=== PATIENT | male | born 1965 | race Caucasian/White ===

== ENCOUNTER 2018-07-01 18:49 | Outpatient (CLI) | payer OTHER ==
--- NOTE | 2018-07-02 10:21 | Ultrasound Report ---
Procedure Date: 07/01/2018 Accession Number: [id number] / [id number] Procedure: US - Duplex Lwr Ext Arterial Bilat CPT Code: FULL RESULT: EXAM: Bilateral Lower Extremity Arterial Doppler Ultrasound EXAM DATE: 07/01/2018 08:03 PM. CLINICAL HISTORY: Claudication, intermittent. COMPARISON: None. TECHNIQUE: Real-time sonographic vascular imaging was performed by the bar pointer, utilizing color-flow, Doppler flow, and spectral analysis. Multiple sales representative church furniture static images were saved for review. FINDINGS: Right lower extremity arterial system: Atherosclerotic disease present. Monophasic waveform in the peroneal artery. Patent vessels without focal stenosis identified. Left lower extremity arterial system: Atherosclerotic disease present. Proximal and mid superficial femoral artery is occluded with reconstitution distally where there are monophasic waveforms in the distal superficial femoral artery extending to the ankle. Right Leg: MILL OILER: PSV 82.9 cm/sec. Biphasic waveform. PSFA: PSV 96.9 cm/sec. Triphasic waveform. MSFA: PSV 134.3 cm/sec. Triphasic waveform. DSFA: PSV 53.4 cm/sec. Triphasic waveform. PFA: PSV 85.7 cm/sec. Biphasic waveform. POP: PSV 93.3 cm/sec. Triphasic waveform. ALVIN: PSV 92.8 cm/sec. Biphasic waveform. NETWORK TECHNICIAN: PSV 75.6 cm/sec. Biphasic waveform. PER: PSV 28 cm/sec. Monophasic waveform. DPA: PSV 26.3 cm/sec. Biphasic waveform. Left Leg: MILL OILER: PSV 88.2 cm/sec. Biphasic waveform. PSFA: PSV 56.2 cm/sec. Monophasic waveform. MSFA: PSV 0 cm/sec, stenosed. DSFA: PSV 25.6 cm/sec. Monophasic waveform. PFA: PSV 70.5 cm/sec. Monophasic waveform. POP: PSV 28.6 cm/sec. Monophasic waveform. ALVIN: PSV 12.5 cm/sec. Monophasic waveform. NETWORK TECHNICIAN: PSV 45.9 cm/sec. Monophasic waveform. PER: PSV 17 cm/sec. Monophasic waveform. DPA: PSV 6.8 cm/sec. Monophasic waveform. IMPRESSION: 1. Proximal and mid left superficial femoral artery is occluded with reconstitution distally with abnormal monophasic waveforms extending to the ankle. 2. No focal stenosis seen in the right lower extremity arterial system; however, abnormal waveforms indicating atherosclerotic disease. RADIA
== END 2018-07-01 18:50 | disposition home or self-care (01) ==
LOC: DI 18:49
PROVIDERS: ATTEND Family Medicine
DX: I70.202 Unspecified atherosclerosis of native arteries of extremities, left leg (principal)
CPT/HCPCS: 93925

== ENCOUNTER 2018-07-11 08:00 | Outpatient (CLI) | payer OTHER ==
[2018-07-11 12:17] LABS: BASOPHILS # (AUTO) 0.1 10^3/uL (0.0-0.1); BASOPHILS % (AUTO) 0.9 %; EOSINOPHILS % (AUTO) 11.4 %; HGB - HEMOGLOBIN 16.4 g/dL (14.0-18.0); LYMPHOCYTES % (AUTO) 21.9 %; MEAN CORPUSCULAR HEMOGLOBIN 31.9 pg (27.0-31.0); MEAN CORPUSCULAR HGB CONC 34.1 g/dL (32.0-36.0); MEAN CORPUSCULAR VOLUME 93.5 fL (80.0-94.0); MEAN PLATELET VOLUME 11.5 fL (7.4-11.4); MONOCYTES # (AUTO) 0.7 10^3/uL (0.0-1.0); MONOCYTES % (AUTO) 8.3 %; NEUTROPHILS # (AUTO) 5.2 10^3/uL (1.5-6.6); NEUTROPHILS % (AUTO) 57.5 %; PLT - PLATELET COUNT 165 10^3/uL (130-450); RED BLOOD COUNT 5.13 10^6/uL (4.70-6.10)
[2018-07-11 13:07] LABS: ALBUMIN/GLOBULIN RATIO 1.5 (1.0-2.2); ALKALINE PHOSPHATASE 43 IU/L (42-121); ALT ALANINE AMINOTRANSFERASE 34 IU/L (10-60); AST ASPARTATE AMINOTRANSFERASE 26 IU/L (10-42); BILIRUBIN,TOTAL 0.7 mg/dL (0.2-1.0); BUN - BLOOD UREA NITROGEN 17 mg/dL (6-20); CALCIUM 9.1 mg/dL (8.5-10.3); CARBON DIOXIDE - CO2 26 mmol/L (21-32); CHLORIDE 106 mmol/L (101-111); CHOL/HDL RATIO 3.5 (<5.0); CHOLESTEROL 130 mg/dL; CREATININE 1.1 mg/dL (0.6-1.2); GFR - MDRD 70 (>89); GLUCOSE 101 mg/dL (70-100); HDL CHOLESTEROL 37 mg/dL; LDL CHOLESTEROL,CALCULATED 71 mg/dL; LDL/HDL RATIO 1.9 (<3.6); SODIUM 138 mmol/L (135-145); TOTAL PROTEIN 6.7 g/dL (6.7-8.2); VLDL CHOLESTEROL 22 mg/dL
== END 2018-07-11 08:01 | disposition home or self-care (01) ==
LOC: LAB.WCP 08:00
PROVIDERS: ATTEND Family Medicine
DX: I10 Essential (primary) hypertension (principal); I25.10 Atherosclerotic heart disease of native coronary artery without angina pectoris; Z79.891 Long term (current) use of opiate analgesic; E78.5 Hyperlipidemia, unspecified; Z12.5 Encounter for screening for malignant neoplasm of prostate
CPT/HCPCS: 36415; 80053; 80061; 83721; 84153; 84443; 85025

== ENCOUNTER 2018-11-14 07:59 | Outpatient (CLI) | payer OTHER | END 2018-11-14 08:00 | disposition home or self-care (01) | LOC: DI 07:59 | PROVIDERS: ATTEND Family Medicine | DX: Z53.9 Procedure and treatment not carried out, unspecified reason (principal) ==

== ENCOUNTER 2018-11-28 07:46 | Outpatient (CLI) | payer OTHER | END 2018-11-28 07:47 | disposition home or self-care (01) | LOC: DI 07:46 | PROVIDERS: ATTEND Family Medicine | DX: Z53.9 Procedure and treatment not carried out, unspecified reason (principal) ==

== ENCOUNTER 2020-03-20 15:37 | Emergency (ER) | payer OTHER ==
--- NOTE | 2020-03-20 16:11 | ED Physician Documentation ---
PD HPI DYSPNEA - Stated complaint Stated Complaint: SOA/COUGH - Chief complaint Chief Complaint: Resp - History obtained from History obtained from: Patient - History of Present Illness Timing - onset: Other (55-year-old gentleman with history of remote coronary bypass and history of smoking use but quit a year and a half ago. He had a nonproductive cough for 5 days and over the last 2 to 3 days has had dyspnea and orthopnea. Especially bad last night. There is some associated migratory chest pain with it. Denies fevers or chills. Minimal pedal edema.) Review of Systems Ten Systems: 10 systems reviewed and negative Constitutional: denies: Fever, Chills, Myalgias, Fatigue Nose: denies: Rhinorrhea / runny nose Throat: denies: Sore throat Cardiac: reports: Chest pain / pressure, Pedal edema. denies: Palpitations, Calf pain Respiratory: reports: Dyspnea, Cough GI: denies: Abdominal Pain PD PAST MEDICAL HISTORY - Past Medical History Cardiovascular: Hypertension, Coronary artery disease - Past Surgical History Past Surgical History: Yes Cardiovascular: CABG - Present Medications Home Medications: Ambulatory Orders Medication Instructions Recorded Confirmed Atenolol 50 mg PO DAILY 09/09/15 09/09/15 Hydrochlorothiazide 25 mg PO DAILY 09/09/15 03/20/20 Amlodipine Besylate 5 mg PO BID 03/20/20 03/20/20 Aspirin [Aspirin EC] 81 mg PO DAILY 03/20/20 03/20/20 Aspirin/Acetaminophen/Caffeine 2 tab PO PRN PRN 03/20/20 03/20/20 [Excedrin Extra Strength Caplet] Atorvastatin [Lipitor] 20 mg PO DAILY 03/20/20 03/20/20 Azithromycin 1 tab PO DAILY #4 tablet 03/20/20 Clopidogrel [Plavix] 75 mg PO DAILY 03/20/20 03/20/20 diphenhydrAMINE [Benadryl] 25 mg PO QPM 03/20/20 03/20/20 predniSONE [Deltasone] 60 mg PO DAILY 5 Days #15 tablet 03/20/20 - Allergies Allergies/Adverse Reactions: Allergies Allergy/AdvReac Type Severity Reaction Status Date / Time Iodinated Contrast Media Allergy Hives Verified 03/20/20 15:48 - Social History Does the pt smoke?: Yes Smoking Status: Former smoker Does the pt drink ETOH?: No Does the pt have substance abuse?: No - Family History Family history: reports: Non contributory PD ED PE NORMAL - Vitals Vital signs reviewed: Yes - General General: Alert and oriented X 3, No acute distress - HEENT HEENT: PERRL, EOMI - Neck Neck: Supple, no meningeal sign, No bony TTP - Cardiac Cardiac: RRR, No murmur - Respiratory Respiratory: No respiratory distress, Other (Coarse and rhonchorous at the left base) - Abdomen Abdomen: Soft, Non tender - Back Back: No CVA TTP, No spinal TTP - Derm Derm: Normal color, Warm and dry - Extremities Extremities: No edema, No calf tenderness / cord - Neuro Neuro: Alert and oriented X 3, Normal speech Results - Vitals Vitals: Vital Signs - 24 hr 03/20/20 03/20/20 03/20/20 15:44 16:53 17:03 Temperature 37.1 C Heart Rate 73 62 68 Respiratory 30 H 20 20 Rate Blood Pressure 159/81 H 124/83 H 139/80 H O2 Saturation 91 L 95 94 03/20/20 18:08 Temperature 37.4 C Heart Rate 63 Respiratory 20 Rate Blood Pressure 139/70 H O2 Saturation 95 Oxygen O2 Source Room air - EKG (time done) 1555 Rate: Rate (enter#) (68) Rhythm: NSR [place]: Normal Intervals: Normal [place] QRS: Normal Ischemia: Normal ST segments Computer interpretation: Agree with computer - Labs Labs: Laboratory Tests 03/20/20 03/20/20 03/20/20 16:10 16:10 16:10 WBC 11.0 H RBC 5.24 Hgb 16.1 Hct 47.1 MCV 89.9 MCH 30.7 MCHC 34.2 RDW 13.3 Plt Count 211 MPV 11.8 H Neut # (Auto) 7.6 H Lymph # (Auto) 1.7 [place] # (Auto) 0.9 Eos # (Auto) 0.7 Baso # (Auto) 0.1 Absolute Nucleated RBC 0.00 Nucleated RBC % 0.0 D-Dimer Sodium 139 Potassium 3.7 Chloride 104 Carbon Dioxide 26 Anion Gap 9.0 BUN 20 Creatinine 0.9 Estimated GFR (MDRD) 87 L Glucose 128 H Lactic Acid 1.4 Calcium 9.0 Total Bilirubin 1.4 H AST 33 ALT 40 Alkaline Phosphatase 49 Troponin I High Sens B-Natriuretic Peptide Total Protein 8.0 Albumin 4.2 Globulin 3.8 Albumin/Globulin Ratio 1.1 Lipase 44 03/20/20 03/20/20 03/20/20 16:10 16:10 16:10 WBC RBC Hgb Hct MCV MCH MCHC RDW Plt Count MPV Neut # (Auto) Lymph # (Auto) [place] # (Auto) Eos # (Auto) Baso # (Auto) Absolute Nucleated RBC Nucleated RBC % D-Dimer 235.7 Sodium Potassium Chloride Carbon Dioxide Anion Gap BUN Creatinine Estimated GFR (MDRD) Glucose Lactic Acid Calcium Total Bilirubin AST ALT Alkaline Phosphatase Troponin I High Sens 7.6 B-Natriuretic Peptide 30 Total Protein Albumin Globulin Albumin/Globulin Ratio Lipase - Rads (name of study) 1v chest Radiology: EMP read contemporaneously (L lung base scarring) PD MEDICAL DECISION MAKING - ED course ED course: 55-year-old gentleman with what sounds like bronchitis with some shortness of breath and coughing. Work-up here was negative, his vital signs improved without specific intervention. Coronavirus is possible and a test was done, but lack of lymphopenia makes it less likely. He was given antibiotics because of potential for underlying COPD from prior smoking. Departure - Departure Disposition: Home, Self Care Clinical Impression: Bronchitis Condition: Good Record reviewed to determine appropriate education?: Yes Instructions: ED Bronchitis Asthmatic Prescriptions: Azithromycin 1 tab PO DAILY #4 tablet predniSONE [Deltasone] 60 mg PO DAILY 5 Days #15 tablet Comments: Today we checked for classic pneumonia. Your x-ray was clear except for some chronic scarring at the left lung base. We also checked for signs of heart attack, heart failure, and blood clots. These were all negative. Coronavirus testing is pending, but given the limitations we talked about, you need to assume it is positive even if the result is negative. You should home quarantine until 3 days have passed after all of your symptoms are completely better. Return for new or worsening symptoms. Discharge Date/Time: 03/20/20 18:08
[2020-03-20 16:18] LABS: BASOPHILS # (AUTO) 0.1 10^3/uL (0.0-0.1); BASOPHILS % (AUTO) 0.8 %; EOSINOPHILS # (AUTO) 0.7 10^3/uL (0.0-0.7); EOSINOPHILS % (AUTO) 6.4 %; HGB - HEMOGLOBIN 16.1 g/dL (14.0-18.0); LYMPHOCYTES # (AUTO) 1.7 10^3/uL (1.5-3.5); LYMPHOCYTES % (AUTO) 15.4 %; MEAN CORPUSCULAR HEMOGLOBIN 30.7 pg (27.0-31.0); MEAN CORPUSCULAR HGB CONC 34.2 g/dL (32.0-36.0); MEAN CORPUSCULAR VOLUME 89.9 fL (80.0-94.0); MEAN PLATELET VOLUME 11.8 fL (7.4-11.4); MONOCYTES # (AUTO) 0.9 10^3/uL (0.0-1.0); MONOCYTES % (AUTO) 8.1 %; NEUTROPHILS # (AUTO) 7.6 10^3/uL (1.5-6.6); NEUTROPHILS % (AUTO) 68.9 %; PLT - PLATELET COUNT 211 10^3/uL (130-450); RED BLOOD COUNT 5.24 10^6/uL (4.70-6.10); RED CELL DISTRIBUTION WIDTH 13.3 % (12.0-15.0)
[2020-03-20 16:31] LABS: ALBUMIN 4.2 g/dL (3.2-5.5); ALBUMIN/GLOBULIN RATIO 1.1 (1.0-2.2); BILIRUBIN,TOTAL 1.4 mg/dL (0.2-1.0); CREATININE 0.9 mg/dL (0.6-1.2)
--- NOTE | 2020-03-20 16:51 | XRAY Report ---
Reason: cough dyspnea Procedure Date: 03/20/2020 Accession Number: [id number] / [id number] Procedure: XR - Chest 1 View X-Ray CPT Code: 92974 Final Report FULL RESULT: EXAM: CHEST RADIOGRAPHY EXAM DATE: 03/20/2020 04:12 PM. CLINICAL HISTORY: Cough, dyspnea. COMPARISON: CHEST 2 VIEW PA/LAT 11/09/2016 4:21 PM. TECHNIQUE: 1 view. FINDINGS: Lungs/Pleura: Left mid and lower lung pleural thickening. Left basilar parenchymal scarring. No consolidation. No pneumothorax. No vascular congestion. Mediastinum: Heart size upper normal. Aorta is moderately tortuous. Other: Changes seen from median sternotomy. IMPRESSION: 1. Left mid and lower lung pleural thickening and left lower lung parenchymal scarring. 2. No new focal abnormality. RADIA
[2020-03-20] MEDS ORDERED: AZITHROMYCIN 250 MG TABLET PO STA (17:39)
[2020-03-20] MEDS ORDERED: HYDROcod/ACET 5/325 Prepack 4 PO STA (17:39)
[2020-03-20] MEDS ORDERED: predniSONE 20 MG TABLET PO STA (17:39)
[2020-03-20 18:09] VITALS: BP 139/70
== END 2020-03-20 18:08 | disposition home or self-care (01) ==
LOC: ED 15:37
DX: J40 Bronchitis, not specified as acute or chronic (principal); I25.10 Atherosclerotic heart disease of native coronary artery without angina pectoris; I10 Essential (primary) hypertension; Z95.1 Presence of aortocoronary bypass graft; Z87.891 Personal history of nicotine dependence
CPT/HCPCS: 36415; 71045; 80053; 83605; 83690; 83880; 84484; 85025; 85379; 87040; 87635; 93005; 99284; 99285; A9270; J7512; 81599

== ENCOUNTER 2020-04-08 09:22 | Emergency (ER) | payer OTHER ==
[2020-04-08] MEDS ORDERED: ASPIRIN CHEW 81 MG TABLET PO STA (09:30)
[2020-04-08 09:49] LABS: BASOPHILS # (AUTO) 0.1 10^3/uL (0.0-0.1); BASOPHILS % (AUTO) 0.7 %; EOSINOPHILS # (AUTO) 0.6 10^3/uL (0.0-0.7); EOSINOPHILS % (AUTO) 7.5 %; HGB - HEMOGLOBIN 15.8 g/dL (14.0-18.0); LYMPHOCYTES # (AUTO) 1.5 10^3/uL (1.5-3.5); MEAN CORPUSCULAR HEMOGLOBIN 30.9 pg (27.0-31.0); MEAN CORPUSCULAR HGB CONC 34.1 g/dL (32.0-36.0); MEAN CORPUSCULAR VOLUME 90.6 fL (80.0-94.0); MEAN PLATELET VOLUME 11.8 fL (7.4-11.4); MONOCYTES # (AUTO) 0.7 10^3/uL (0.0-1.0); MONOCYTES % (AUTO) 8.7 %; NEUTROPHILS # (AUTO) 5.5 10^3/uL (1.5-6.6); NEUTROPHILS % (AUTO) 64.6 %; PLT - PLATELET COUNT 205 10^3/uL (130-450); RED BLOOD COUNT 5.12 10^6/uL (4.70-6.10); RED CELL DISTRIBUTION WIDTH 13.3 % (12.0-15.0); WHITE BLOOD COUNT 8.6 x10^3/uL (4.8-10.8)
--- NOTE | 2020-04-08 09:55 | XRAY Report ---
Reason: Chest Pain Procedure Date: 04/08/2020 Accession Number: [id number] / [id number] Procedure: XR - Chest 1 View X-Ray CPT Code: 08523 Final Report FULL RESULT: EXAM: CHEST RADIOGRAPHY EXAM DATE: 04/08/2020 09:43 AM. CLINICAL HISTORY: Chest pain. Tightness. Shortness of air. COMPARISON: CHEST 1 VIEW 03/20/2020 3:47 PM CHEST 2 VIEW PA/LAT 11/09/2016 4:21 PM. TECHNIQUE: 1 view. FINDINGS: Lungs/Pleura: Left mid and lower pleural thickening and parenchymal scarring, unchanged. No consolidation. No vascular congestion. No pneumothorax. Mediastinum: Heart size and mediastinal contour are stable. Other: Changes are again seen for median sternotomy. IMPRESSION: 1. No acute disease in the chest. Stable examination. RADIA
[2020-04-08 09:59] LABS: ALBUMIN 4.3 g/dL (3.2-5.5); ALBUMIN/GLOBULIN RATIO 1.3 (1.0-2.2); BILIRUBIN,TOTAL 1.4 mg/dL (0.2-1.0); CALCIUM 8.9 mg/dL (8.5-10.3); TOTAL PROTEIN 7.6 g/dL (6.7-8.2)
[2020-04-08] MEDS ORDERED: AZITHROMYCIN 250 MG TABLET PO STA (10:06)
--- NOTE | 2020-04-08 10:09 | ED Physician Documentation ---
History of Present Illness - Stated complaint Stated Complaint: CHEST TIGHTNESS/SOA - Chief complaint Chief Complaint: Resp - History obtained from History obtained from: Patient - Additonal information Additional information: PT comes to the ED c/o a recurrence of chest tightness and productive cough that he had last month. Pt is a smoker, and was treated at that time with Zithromax, which he states was immensely helpful, and resolved all of his sx. However, sx have crept back over the past week. 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 He does not know if this has anything to do with his sx. PT denies fevers. No sore throat or runny nose. No sick contacts. Pt states he does not really feel "sick", other than his chest sx. He does not recall having received a dx of COPD, though he has smoked throughout his adult life. He denies any actual pain in his chest, and no worsening MARTIN. No nausea, diaphoresis or lightheadedness with the chest tightness. He states the sensation is constant. No other complaints at this time. Review of Systems Ten Systems: 10 systems reviewed and negative Constitutional: reports: Reviewed and negative Eyes: reports: Reviewed and negative Ears: reports: Reviewed and negative Nose: reports: Reviewed and negative Throat: reports: Reviewed and negative Cardiac: reports: Chest pain / pressure (tightness only) Respiratory: reports: Cough GI: reports: Reviewed and negative : reports: Reviewed and negative Skin: reports: Reviewed and negative Musculoskeletal: reports: Reviewed and negative Neurologic: reports: Reviewed and negative Psychiatric: reports: Reviewed and negative Endocrine: reports: Reviewed and negative Immunocompromised: reports: Reviewed and negative PD PAST MEDICAL HISTORY - Past Medical History Cardiovascular: Hypertension, Coronary artery disease Respiratory: Pneumonia, Shortness of breath Endocrine/Autoimmune: None GI: None : Incontinence HEENT: Other Psych: None Musculoskeletal: None - Past Surgical History Past Surgical History: Yes Cardiovascular: CABG - Present Medications Home Medications: Ambulatory Orders Medication Instructions Recorded Confirmed Atenolol 50 mg PO DAILY 09/09/15 09/09/15 Hydrochlorothiazide 25 mg PO DAILY 09/09/15 03/20/20 Amlodipine Besylate 5 mg PO BID 03/20/20 03/20/20 Aspirin [Aspirin EC] 81 mg PO DAILY 03/20/20 03/20/20 Aspirin/Acetaminophen/Caffeine 2 tab PO PRN PRN 03/20/20 03/20/20 [Excedrin Extra Strength Caplet] Atorvastatin [Lipitor] 20 mg PO DAILY 03/20/20 03/20/20 Clopidogrel [Plavix] 75 mg PO DAILY 03/20/20 03/20/20 diphenhydrAMINE [Benadryl] 25 mg PO QPM 03/20/20 03/20/20 Azithromycin [Zithromax] 0 mg PO DAILY #6 tablet 04/08/20 predniSONE [Prednisone] 60 mg PO DAILY #12 tablet 04/08/20 - Allergies Allergies/Adverse Reactions: Allergies Allergy/AdvReac Type Severity Reaction Status Date / Time Iodinated Contrast Media Allergy Hives Verified 04/08/20 09:42 - Social History Does the pt smoke?: Yes Smoking Status: Former smoker Does the pt drink ETOH?: No Does the pt have substance abuse?: No - Immunizations Immunizations are current?: Yes PD ED PE NORMAL - Vitals Vital signs reviewed: Yes - General General: Alert and oriented X 3, No acute distress, Well developed/nourished - HEENT HEENT: Atraumatic, PERRL, EOMI, Moist mucous membranes - Neck Neck: Supple, no meningeal sign - Cardiac Cardiac: RRR, No murmur - Respiratory Respiratory: No respiratory distress, Clear bilaterally - Abdomen Abdomen: Soft, Non tender, Non distended - Derm Derm: Normal color, Warm and dry, No rash - Extremities Extremities: No deformity, No edema, No calf tenderness / cord - Neuro Neuro: Alert and oriented X 3, Other (grossly normal) - Psych Psych: Normal mood, Normal affect Results - Vitals Vitals: Oxygen O2 Source Room air - EKG (time done) 0933 Rate: Rate (enter#) (54) Rhythm: Sinus bradycardia [place]: Normal Intervals: Normal [place] QRS: Normal Ischemia: Normal ST segments Compare to prior EKG: Old EKG unavailable Computer interpretation: Agree with computer - Labs Labs: Laboratory Tests 04/08/20 04/08/20 04/08/20 09:36 09:36 09:36 WBC 8.6 RBC 5.12 Hgb 15.8 Hct 46.4 MCV 90.6 MCH 30.9 MCHC 34.1 RDW 13.3 Plt Count 205 MPV 11.8 H Neut # (Auto) 5.5 Lymph # (Auto) 1.5 [place] # (Auto) 0.7 Eos # (Auto) 0.6 Baso # (Auto) 0.1 Absolute Nucleated RBC 0.00 Nucleated RBC % 0.0 PT 11.6 INR 1.0 Sodium 139 Potassium 4.1 Chloride 106 Carbon Dioxide 25 Anion Gap 8.0 BUN 25 H Creatinine 1.0 Estimated GFR (MDRD) 77 L Glucose 109 H Calcium 8.9 Total Bilirubin 1.4 H AST 32 ALT 41 Alkaline Phosphatase 47 Troponin I High Sens B-Natriuretic Peptide Total Protein 7.6 Albumin 4.3 Globulin 3.3 Albumin/Globulin Ratio 1.3 Lipase 49 04/08/20 04/08/20 09:36 09:36 WBC RBC Hgb Hct MCV MCH MCHC RDW Plt Count MPV Neut # (Auto) Lymph # (Auto) [place] # (Auto) Eos # (Auto) Baso # (Auto) Absolute Nucleated RBC Nucleated RBC % PT INR Sodium Potassium Chloride Carbon Dioxide Anion Gap BUN Creatinine Estimated GFR (MDRD) Glucose Calcium Total Bilirubin AST ALT Alkaline Phosphatase Troponin I High Sens 6.4 B-Natriuretic Peptide 32 Total Protein Albumin Globulin Albumin/Globulin Ratio Lipase - Rads (name of study) chest xr Radiology: Final report received, EMP read indepedently, See rad report (negative) PD MEDICAL DECISION MAKING - ED course Complexity details: reviewed results, re-evaluated patient, considered differential, d/w patient ED course: Pt's work-up, including labs, EKG, and chest x-ray, was negative. Given the fact that the pt is a smoker, plus occupational considerations, I suspected that the pt's bronchitis had returned. Because of his smoking status and ongoing, productive cough, he was placed on abx again. We have discussed the need to quit smoking, and the pt should followup with his PCP to discuss this. We have also discussed the usual indications for return. Departure - Departure Disposition: 01 Home, Self Care Clinical Impression: Mild chronic obstructive pulmonary disease, Bronchitis Condition: Stable Instructions: Bronchitis Acute Dc, Bronchitis Chronic, COPD Dc Prescriptions: Azithromycin [Zithromax] 0 mg PO DAILY #6 tablet predniSONE [Prednisone] 60 mg PO DAILY #12 tablet Comments: Your chest x-ray does not show pneumonia today. Most likely, you have some chronic COPD, perhaps with mild chronic bronchitis that is prone to flaring up. You will be placed on antibiotics again, as well as steroids, since the antibiotics were helpful last time. It is very important that you follow-up with your primary doctor about this issue if you continue to have flareups like this. Discharge Date/Time: 04/08/20 10:35
[2020-04-08 10:17] LABS: PT - PROTHROMBIN TIME 11.6 secs (9.9-12.6)
[2020-04-08 10:19] VITALS: BP 129/75
== END 2020-04-08 10:35 | disposition home or self-care (01) ==
LOC: ED 09:22
DX: J44.0 Chronic obstructive pulmonary disease with (acute) lower respiratory infection (principal); I10 Essential (primary) hypertension; F17.200 Nicotine dependence, unspecified, uncomplicated
CPT/HCPCS: 36415; 71045; 80053; 83690; 83880; 84484; 85025; 85610; 93005; 99284; A9270

== ENCOUNTER 2020-09-10 07:39 | Emergency (ER) | payer OTHER ==
[2020-09-10] MEDS ORDERED: CHERRY SYRUP 10 ML UDC PO ONE (08:09)
[2020-09-10] MEDS ORDERED: DEXAMETHASONE 10 MG/ML VIAL PO STA (08:09)
--- NOTE | 2020-09-10 08:13 | ED Physician Documentation ---
PD HPI UPPER EXT INJURY - Stated complaint Stated Complaint: RT SHOULDER PX - Chief complaint Chief Complaint: Ext Problem - History obtained from History obtained from: Patient - History of Present Illness Location: Left, Shoulder Type of injury: Other (reopetative use) Where injury occurred: Work Timing - onset: How many months ago (2) Timing - duration: Months Timing - details: Gradual onset, Still present Improved by: Rest, Immobilization Worsened by: Moving, Palpating Associated symptoms: No: Weakness, Numbness, Tingling, Swelling Contributing factors: No: Anticoagulated Similar symptoms before: Has not had sx before Recently seen: Not recently seen - Additonal information Additional information: 55-year-old left-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 He does have some improvement after rest from work and this has been been declining and now he is having more significant pain more continuous and difficulty even sleeping. He rates his pain right now at a 4 out of 10. Review of Systems Constitutional: denies: Fever Eyes: denies: Decreased vision Ears: denies: Ear pain Nose: denies: Congestion Throat: denies: Sore throat Cardiac: denies: Chest pain / pressure, Palpitations Respiratory: denies: Dyspnea, Cough GI: denies: Nausea, Vomiting : denies: Dysuria, Frequency Skin: denies: Rash Musculoskeletal: reports: Extremity pain, Joint pain. denies: Neck pain, Back pain, Extremity swelling, Joint swelling Neurologic: denies: Generalized weakness, Focal weakness, Numbness PD PAST MEDICAL HISTORY - Past Medical History Past Medical History: Yes Cardiovascular: Hypertension, High cholesterol, Coronary artery disease Respiratory: Pneumonia, Shortness of breath Neuro: None Endocrine/Autoimmune: None GI: None : Incontinence HEENT: Other Psych: None Musculoskeletal: None Derm: None - Past Surgical History Past Surgical History: Yes Cardiovascular: CABG - Present Medications Home Medications: Ambulatory Orders Medication Instructions Recorded Confirmed Atenolol 50 mg PO DAILY 09/09/15 09/09/15 Hydrochlorothiazide 25 mg PO DAILY 09/09/15 03/20/20 Amlodipine Besylate 5 mg PO BID 03/20/20 03/20/20 Aspirin [Aspirin EC] 81 mg PO DAILY 03/20/20 03/20/20 Aspirin/Acetaminophen/Caffeine 2 tab PO PRN PRN 03/20/20 03/20/20 [Excedrin Extra Strength Caplet] Atorvastatin [Lipitor] 20 mg PO DAILY 03/20/20 03/20/20 Clopidogrel [Plavix] 75 mg PO DAILY 03/20/20 03/20/20 diphenhydrAMINE [Benadryl] 25 mg PO QPM 03/20/20 03/20/20 Azithromycin [Zithromax] 0 mg PO DAILY #6 tablet 04/08/20 predniSONE [Prednisone] 60 mg PO DAILY #12 tablet 04/08/20 traMADol [Ultram] 50 - 100 mg PO Q6H PRN #20 tablet 09/10/20 - Allergies Allergies/Adverse Reactions: Allergies Allergy/AdvReac Type Severity Reaction Status Date / Time Iodinated Contrast Media Allergy Hives Verified 09/10/20 07:42 - Social History Does the pt smoke?: Yes Smoking Status: Former smoker Does the pt drink ETOH?: No Does the pt have substance abuse?: No - Immunizations Immunizations are current?: Yes - POLST Patient has POLST: No PD ED PE NORMAL - Vitals Vital signs reviewed: Yes (hypertensive ) - General General: Alert and oriented X 3, No acute distress, Well developed/nourished - HEENT HEENT: Atraumatic, PERRL, EOMI - Neck Neck: Supple, no meningeal sign, No bony TTP - Respiratory Respiratory: No respiratory distress - Derm Derm: Normal color, Warm and dry, No rash - Extremities Extremities: No deformity, No edema, Other (There is mild tenderness anteriorly to the left shoulder joint. He is able to hold the arm in abduction against resistance and the n/v is intact distally. He is able to get the arm over the head but had some limitation with this. 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 Left shoulder without acute fracture or malalignment. 2. 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 His level of pain is a 4 out of 10 he is not requesting pain medication. I have offered to give the patient a note for work for 1 week and I have asked him to follow-up with orthopedics. He may need injection or additional physical therapy. Departure - Departure Disposition: 01 Home, Self Care Clinical Impression: Bursitis and tendinitis of shoulder region Condition: Stable Instructions: ED Bursitis Follow-Up: Nando Glaser MD [Primary Care Provider] - [facility] [Provider Group] Prescriptions: traMADol [Ultram] 50 - 100 mg PO Q6H PRN #20 tablet PRN Reason: Pain Comments: Today it appears you have a bursitis or tendinitis related to overuse of your left shoulder joint. We have put you into a sling and it is imperative to remove your arm from the sling several times per day to run it in a range of motion to avoid adhesion to the shoulder capsule. Forms: Activity restrictions
--- NOTE | 2020-09-10 08:49 | XRAY Report ---
PROCEDURE: Shoulder 3 View LT INDICATIONS: pain decreased ROM TECHNIQUE: 4 views of the shoulder were acquired. COMPARISON: None. FINDINGS: Bones: No acute fractures or dislocations. There are moderate hypertrophic osteoarthritic changes of the acromioclavicular joint with undersurface spurring. Coracoclavicular and acromioclavicular inter vals are maintained. No suspicious bony lesions. Visualized ribs appear intact. Soft tissues: No suspicious soft tissue calcifications. Median sternotomy wires are present. IMPRESSION: 1. Left shoulder without acute fracture or malalignment. 2. 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 Reviewed by: Paul Bagley MD on 09/10/2020 8:48 AM PDT Approved by: Paul Bagley MD on 09/10/2020 8:48 AM PDT Station ID: [id number]
[2020-09-10 09:05] VITALS: BP 147/76
== END 2020-09-10 09:15 | disposition home or self-care (01) ==
LOC: ED 07:39
DX: M70.812 Other soft tissue disorders related to use, overuse and pressure, left shoulder (principal); M75.52 Bursitis of left shoulder; X50.3XXA Overexertion from repetitive movements, initial encounter; X50.0XXA Overexertion from strenuous movement or load, initial encounter; Y93.89 Activity, other specified; Y99.0 Civilian activity done for income or pay; M19.012 Primary osteoarthritis, left shoulder; I10 Essential (primary) hypertension; I25.10 Atherosclerotic heart disease of native coronary artery without angina pectoris; Z95.1 Presence of aortocoronary bypass graft; Z79.02 Long term (current) use of antithrombotics/antiplatelets; Z79.82 Long term (current) use of aspirin; Z87.891 Personal history of nicotine dependence
CPT/HCPCS: 73030; 99283; 99284; A9270

== ENCOUNTER 2020-10-13 09:21 | Emergency (ER) | payer OTHER ==
--- NOTE | 2020-10-13 10:17 | XRAY Report ---
PROCEDURE: Chest 1 View X-Ray INDICATIONS: cough TECHNIQUE: One view of the chest was acquired. COMPARISON: 04/08/2020 FINDINGS: Surgical changes and devices: Remote CABG. Lungs and pleura: No pleural effusions or pneumothorax. Lungs are clear. Mediastinum: Mediastinal contours appear normal. Heart size is unchanged, within normal limits. Pro minent left pericardial fat pad. Bones and chest wall: No suspicious bony lesions. Overlying soft tissues appear unremarkable. IMPRESSION: No evidence acute pulmonary process. Reviewed by: Beto Lemon MD on 10/13/2020 10:15 AM [facility] Approved by: Beto Lemon MD on 10/13/2020 10:15 AM [facility] Station ID: [id number]
[2020-10-13] MEDS ORDERED: ALBUTEROL 1 PUFF INH STA (10:21)
--- NOTE | 2020-10-13 10:43 | ED Physician Documentation ---
PD HPI URI - Stated complaint Stated Complaint: CONGESTION/CHEST TIGHTNESS - Chief complaint Chief Complaint: Resp - History obtained from History obtained from: Patient - History of Present Illness Timing - onset: How many days ago (3) Timing duration: Days (3) Timing details: Gradual onset Pain level max: 0 Pain level now: 0 Associated symptoms: Nasal congestion, Rhinorrhea, Dry cough, Dyspnea (Described as a tightness in his chest. Worse with lying down. Worse with cold air). No: Fever, Chills Contributing factors: Sick contact Improves by: Rest Worsened by: Activity, Breathing Recently seen: Not recently seen Review of Systems Constitutional: denies: Fever, Chills Respiratory: reports: Dyspnea, Cough. denies: Hemoptysis, Wheezing GI: denies: Abdominal Pain, Nausea, Vomiting, Diarrhea Skin: denies: Rash Musculoskeletal: denies: Neck pain, Back pain Neurologic: denies: Headache PD PAST MEDICAL HISTORY - Past Medical History Past Medical History: Yes Cardiovascular: Hypertension, High cholesterol, Coronary artery disease Respiratory: Pneumonia, Shortness of breath Neuro: None Endocrine/Autoimmune: None GI: None : Incontinence HEENT: Other Psych: None Musculoskeletal: None Derm: None - Past Surgical History Past Surgical History: Yes Cardiovascular: CABG - Present Medications Home Medications: Ambulatory Orders Medication Instructions Recorded Confirmed Atenolol 50 mg PO DAILY 09/09/15 09/09/15 Hydrochlorothiazide 25 mg PO DAILY 09/09/15 03/20/20 Amlodipine Besylate 5 mg PO BID 03/20/20 03/20/20 Aspirin [Aspirin EC] 81 mg PO DAILY 03/20/20 03/20/20 Aspirin/Acetaminophen/Caffeine 2 tab PO PRN PRN 03/20/20 03/20/20 [Excedrin Extra Strength Caplet] Atorvastatin [Lipitor] 20 mg PO DAILY 03/20/20 03/20/20 Clopidogrel [Plavix] 75 mg PO DAILY 03/20/20 03/20/20 diphenhydrAMINE [Benadryl] 25 mg PO QPM 03/20/20 03/20/20 Azithromycin [Zithromax] 0 mg PO DAILY #6 tablet 04/08/20 predniSONE [Prednisone] 60 mg PO DAILY #12 tablet 04/08/20 traMADol [Ultram] 50 - 100 mg PO Q6H PRN #20 tablet 09/10/20 Albuterol Sulf [Ventolin Hfa 1 - 2 puffs INH Q4HR PRN #1 inhaler 10/13/20 Inhaler] Benzonatate [Tessalon] 200 mg PO TID PRN #30 capsule 10/13/20 - Allergies Allergies/Adverse Reactions: Allergies Allergy/AdvReac Type Severity Reaction Status Date / Time Iodinated Contrast Media Allergy Hives Verified 10/13/20 09:37 - Social History Does the pt smoke?: Yes Smoking Status: Former smoker Does the pt drink ETOH?: No Does the pt have substance abuse?: No - Immunizations Immunizations are current?: Yes - POLST Patient has POLST: No PD ED PE NORMAL - Vitals Vital signs reviewed: Yes - General General: Alert and oriented X 3, No acute distress, Well developed/nourished - HEENT HEENT: PERRL, Moist mucous membranes - Neck Neck: Supple, no meningeal sign - Cardiac Cardiac: RRR, Strong equal pulses - Respiratory Respiratory: No respiratory distress, Clear bilaterally - Abdomen Abdomen: Soft, Non tender, Non distended - Derm Derm: Warm and dry - Neuro Neuro: Alert and oriented X 3 - Psych Psych: Normal mood, Normal affect Results - Vitals Vitals: Vital Signs - 24 hr 10/13/20 10/13/20 10/13/20 09:35 10:36 11:45 Temperature 36.8 C 36.6 C Heart Rate 57 L 52 L 54 L Respiratory 16 22 16 Rate Blood Pressure 169/88 H 154/93 H O2 Saturation 96 93 Oxygen O2 Source Room air - EKG (time done) 0927 Rate: Rate (enter#) (55) Rhythm: NSR [place]: Normal Intervals: Normal [place] QRS: Normal Ischemia: Normal ST segments - Rads (name of study) Chest x-ray Radiology: Prelim report reviewed, EMP read contemporaneously, See rad report (No acute abnormality) PD MEDICAL DECISION MAKING - ED course Complexity details: reviewed results, re-evaluated patient, considered differential, d/w patient ED course: 55-year-old male presents to the emergency department with what appears to be a viral upper respiratory infection. Covid testing was performed and sent. Feels much better after albuterol treatment. Patient is well-appearing, nontoxic. Afebrile. No hypoxia. No respiratory distress. Patient counseled regarding signs and symptoms for which I believe and urgent re-evaluation would be necessary. Patient with good understanding of and agreement to plan and is comfortable going home at this time This document was made in part using voice recognition software. While efforts are made to proofread this document, sound alike and grammatical errors may occur. Departure - Departure Disposition: Home, Self Care Clinical Impression: Viral URI Condition: Good Instructions: ED URI Viral Follow-Up: your,doctor in 1 week [Other] Prescriptions: Albuterol Sulf [Ventolin Hfa Inhaler] 1 - 2 puffs INH Q4HR PRN #1 inhaler PRN Reason: Shortness Of Air/Wheezing Benzonatate [Tessalon] 200 mg PO TID PRN #30 capsule PRN Reason: Cough Comments: Return if you worsen. Drink plenty of fluids and rest. You have a Covid test pending. You need to self quarantine until the result is done and negative. Do not leave your house. Do not get near anybody. The results should be done in 48 to 72 hours. We will call with a positive result, the fastest way to get a negative result for confirmation though is to go to the hospital website at [email or web address], click on the my [facility] tab and sign up for the patient portal. If any friends or family get sick and would like to have a Covid test done, but do not have signs or symptoms that would necessitate being hospitalized, we encourage testing through our coronavirus swabbing station, call [phone] to schedule an appointment. Discharge Date/Time: 10/13/20 12:12
[2020-10-13 11:45] VITALS: BP 154/93
== END 2020-10-13 12:12 | disposition home or self-care (01) ==
LOC: ED 09:21
DX: J06.9 Acute upper respiratory infection, unspecified (principal); Z79.82 Long term (current) use of aspirin; I10 Essential (primary) hypertension; Z95.1 Presence of aortocoronary bypass graft; Z87.891 Personal history of nicotine dependence; Z20.828 Contact with and (suspected) exposure to other viral communicable diseases; Z79.01 Long term (current) use of anticoagulants
CPT/HCPCS: 71045; 93005; 94640; 99284

== ENCOUNTER 2020-11-08 09:41 | Outpatient (CLI) | payer OTHER ==
--- NOTE | 2020-11-08 09:44 | XRAY Report ---
PROCEDURE: Chest 2 View X-Ray INDICATIONS: Cough TECHNIQUE: 2 view(s) of the chest. COMPARISON: 10/13/2020 FINDINGS: Surgical changes and devices: Median sternotomy changes. Lungs and pleura: No pleural effusions or pneumothorax. Lungs are clear. Mediastinum: Mediastinal contours are normal. Heart size is normal. Prominent left pericardial fat pad noted. Bones and chest wall: No suspicious bony abnormalities. Soft tissues appear unremarkable. IMPRESSION: No acute process demonstrated. Reviewed by: Jacek Flowers MD on 11/08/2020 9:42 AM PST Approved by: Jacek Flowers MD on 11/08/2020 9:42 AM PST Station ID: [id number]
== END 2020-11-08 23:59 | disposition home or self-care (01) ==
LOC: DI.N 09:41
PROVIDERS: ATTEND Family Medicine
DX: R05 Cough (principal)

== ENCOUNTER 2020-11-29 08:00 | Outpatient (CLI) | payer OTHER ==
[2020-11-29 18:14] LABS: CALCIUM 9.5 mg/dL (8.5-10.3)
== END 2020-11-29 23:59 | disposition home or self-care (01) ==
LOC: LAB.WCP 08:00
PROVIDERS: ATTEND Family Medicine
DX: I25.10 Atherosclerotic heart disease of native coronary artery without angina pectoris (principal); J44.9 Chronic obstructive pulmonary disease, unspecified; I73.9 Peripheral vascular disease, unspecified; I10 Essential (primary) hypertension
CPT/HCPCS: 36415; 80048; 83880